=== PATIENT | male | born 1960 | race Caucasian/White ===

== ENCOUNTER 2019-05-16 13:11 | Inpatient (IN) | payer BC ==
[~2019-05-16] VITALS: Ht 188 cm; Wt 98.2 kg
[2019-05-16 13:52] LABS: BASOPHILS ABSOLUTE AUTO 0.02 K/mm3 (0.00-0.23); BASOPHILS PERCENT AUTO 0 % (0-2); EOSINOPHILS ABSOLUTE AUTO 0.01 K/mm3 (0.00-0.68); EOSINOPHILS PERCENT AUTO 0 % (0-6); IMMATURE GRAN PERCENT AUTO 1 % (0-1); LYMPHOCYTES ABSOLUTE AUTO 1.98 K/mm3 (0.84-5.20); LYMPHOCYTES PERCENT AUTO 12 % (21-46); MONOCYTES ABSOLUTE AUTO 1.12 K/mm3 (0.16-1.47); MONOCYTES PERCENT AUTO 7 % (4-13); Mean Corpuscular HGB 33.1 pg (26.0-34.0); Mean Corpuscular HGB Conc 33.5 g/dL (31.5-36.5); Mean Corpuscular Volume 99 fL (80-100); Mean Platelet Volume 9.7 fL (9.1-12.4); NEUTROPHILS ABSOLUTE AUTO 12.79 K/mm3 (1.96-9.15); NEUTROPHILS PERCENT AUTO 80 % (41-73); Platelet Count 235 K/mm3 (150-400); RDW Coefficient Variation 14.6 % (11.7-14.2); RDW Standard Deviation 51.5 fL (35.1-46.3); Red Blood Cell Count 1.75 M/mm3 (4.30-5.90); White Blood Cell Count 16.02 K/mm3 (4.00-11.30)
[2019-05-16 13:55] LABS: Hemoglobin 5.8 g/dL (13.5-17.5)
[2019-05-16 13:56] LABS: Hematocrit 17.3 % (37.0-53.0)
[2019-05-16 14:13] LABS: Alanine Aminotransfer (ALT/SGP 45 U/L (12-78); Albumin, Blood 2.6 g/dL (3.4-5.0); Albumin/Globulin Ratio 1.1 (0.8-1.8); Alk Phos 138 U/L (50-136); Anion Gap 8 mmol/L (6-16); Aspartate Aminotrans (AST/SGOT 83 U/L (12-37); Bilirubin, Total 0.7 mg/dL (0.1-1.0); Blood Urea Nitrogen 42 mg/dL (8-24); Bun/Creatinine Ratio 42.8 (12.0-20.0); CO2, Blood 23 mmol/L (21-32); Chloride, Blood 106 mmol/L (98-108); Creatinine, Blood 0.98 mg/dL (0.60-1.20); Globulin, Blood 2.3 g/dL (2.2-4.0); Glomerular Filtration Rate >60 (60-); Glucose, Blood 125 mg/dL (70-99); Potassium, Blood 4.5 mmol/L (3.5-5.5); Sodium, Blood 137 mmol/L (136-145); Total Protein, Blood 4.9 g/dL (6.4-8.2)
[2019-05-16] MEDS ORDERED: LIDOCAINE1 EACH TOP (15:54)
[2019-05-16] MEDS ORDERED: Naproxen250 MG PO (15:54)
[2019-05-16] MEDS ORDERED: Carisoprodol350 MG PO (15:55)
[2019-05-16] MEDS ORDERED: OMEP20ER PO (16:13)
[2019-05-16] MEDS ORDERED: AMLO10 PO (16:13)
[2019-05-16] MEDS ORDERED: Flonase 0.05% N16 GM (16:14)
[2019-05-16] MEDS ORDERED: Hydrocodone-Ap1 EA20 PO (16:14)
--- NOTE | 2019-05-16 16:30 | NUR ---
Recieved report from Christiano ABBOTT and patient was transfered via rney to ICU 6. He was a 4 person slide transfer as he felt too weak. He had Protonix at 10ml/hr, Octreotide at 25ml/hr, Blood at 400ml/hr. He is very tired.. He has three IVs all dressings intact and site WNL's. He is hooked up to monitor, systolic 80's and called Dr Randolph for bolus and recieved LR bolus 100ml and than 150ml/hr.
--- NOTE | 2019-05-16 17:23 | NUR ---
2nd Unit PRBC going and boluses and systolic still low. Called and got order for low Levophed for systolics in the 70-80's and is currently 5mcg/min and systolics 100's. Scope team and Dr Rangel in room getting consents and will be starting shortly. Dr King Anesthesia. Stopped Octreotide for extra line and blood is done.
--- NOTE | 2019-05-16 18:00 | NUR ---
05/16/19 Janette Kilgore History, Chart, Medications and Allergies reviewed before start of procedure.[facility] [place] [facility] IWDALE OSBORNE
[2019-05-16 18:27] LABS: Hematocrit 20.9 % (37.0-53.0)
--- NOTE | 2019-05-16 19:00 | NUR ---
Gave report to Tonia ABBOTT and reviewed IV pumps and orders. Dr Jones wrote new orders and labs and reviewed with both of us. Patient alert and wanting to rest and is able to communicate his needs.
--- NOTE | 2019-05-16 21:58 | NUR ---
PATIENT RESTING IN BED AT FIRST PATIENT VERY RESTLESS AND UNABLE TO LAY STILL. C/O FEELING IF HE HAD "HEART BURN" AND LIKE SOMEONE HAD HIT HIM IN THE BELLY. PATIENT ALSO C/O HIS CHRONIC LOW BACK PAIN. PATIENT PASSING FREQUENT FLATUS AND INCONT OF SMALL LOOSE BLACK BM. ATTENDS IN PLACE. PATIENT VOIDING DARK DANIEL URINE. PATIENTS BED ADJUSTED FOR COMFORT. PATIENT CONTINUES ON PROTONIX AND OCTREOTIDE DRIP. SCHEDULED REGLAN GIVEN. ATIVAN GIVEN TO HELP PATIENT RELAX. PATIENT NOW RESTING QUIETLY AND SLEEPING WHEN UNDISTURBED. LEVOPHED DRIP HAS BEEN TITRATED DOWN NOW AT 1 MCG. PRBC INFUSING WITHOUT ISSUE.
--- NOTE | 2019-05-16 22:54 | NUR ---
PATIENT RESTING QUIETLY, AWAKENS TO SLIGHT STIMULI. NO COMPLAINTS AT THIS TIME. 4TH UNIT PRBC STARTED.
[2019-05-17 01:52] LABS: Hematocrit 27.5 % (37.0-53.0); Hemoglobin 9.3 g/dL (13.5-17.5)
--- NOTE | 2019-05-17 04:45 | NUR ---
PATIENT AWAKE AND RESTLESS. ATTEMPT TO ADJUST AIR BED FOR COMFORT. HEATING PAD PLACED TO BACK. ATIVAN GIVEN TO HELP PATIENT RELAX.
--- NOTE | 2019-05-17 06:13 | NUR ---
SUMMARY PATIENT RESTING QUIETLY T/O THE NIGHT. NO SIGN OF BLEEDING AT THIS TIME. LEVOPHED TITRATE OFF AND VSS. PATIENT C/O CHRONIC BACK PAIN AND RESTLESS AT TIMES. HEATING PAD PLACED TO PATIENTS BACK AND ATIVAN IV GIVEN FOR RESTLESSNESS WITH GOOD RESULTS. PATIENTS GIRL FRIEND CHRISS AT BEDSIDE T/O THE NIGHT PROVIDING GOOD SUPPORT.
--- NOTE | 2019-05-17 07:47 | NUR ---
CARE ASSUMED, ASSESSMENT COMPLETED. PT DROWSY AFTER ATIVAN, ROUSES EASILY, COOPERATIVE WITH CARE. NO AGITATION OR RESTLESSNESS NOTED. PT POSITIONS SELF IN BED, ATTENDS ON, NO BM OR EMESIS THIS MORNING. KPAD TO LOWER BACK FOR COMFORT, SCDS IN PLACE. VSS, HR NSR. S/O AT BEDSIDE. LABS DRAWN, US TECH AT BEDSIDE FOR EXAM.
[2019-05-17 07:54] LABS: Hematocrit 26.4 % (37.0-53.0); Hemoglobin 8.9 g/dL (13.5-17.5)
--- NOTE | 2019-05-17 07:54 | NUR ---
OCTREOTIDE AND PROTONIX INFUSING PER ORDERS.
[2019-05-17 07:55] LABS: Hematocrit 26.2 % (37.0-53.0); Hemoglobin 8.9 g/dL (13.5-17.5); Mean Corpuscular HGB 30.2 pg (26.0-34.0); Mean Platelet Volume 9.4 fL (9.1-12.4); NRBC ABSOLUTE 0.03 K/mm3 (0.00-0.02); NRBC Auto 0.3 /100 WBC (0.0-0.2); Platelet Count 137 K/mm3 (150-400); RDW Coefficient Variation 18.1 % (11.7-14.2); RDW Standard Deviation 56.9 fL (35.1-46.3); Red Blood Cell Count 2.95 M/mm3 (4.30-5.90); White Blood Cell Count 9.17 K/mm3 (4.00-11.30)
[2019-05-17 07:58] LABS: Mean Corpuscular Volume 89 fL (80-100)
[2019-05-17 08:10] LABS: International Normalized Ratio 1.17; Prothrombin Time Results 12.2 Sec (9.7-11.5)
[2019-05-17 08:15] LABS: Anion Gap 5 mmol/L (6-16); Blood Urea Nitrogen 22 mg/dL (8-24); Bun/Creatinine Ratio 29.4 (12.0-20.0); CO2, Blood 26 mmol/L (21-32); Calcium, Blood 7.6 mg/dL (8.5-10.1); Chloride, Blood 110 mmol/L (98-108); Creatinine, Blood 0.75 mg/dL (0.60-1.20); Glomerular Filtration Rate >60 (60-); Glucose, Blood 116 mg/dL (70-99); Potassium, Blood 3.8 mmol/L (3.5-5.5); Sodium, Blood 141 mmol/L (136-145)
--- NOTE | 2019-05-17 08:54 | NUR ---
TRAMADOL ADMINISTERED FOR BACK PAIN, ATTENDS CHANGED FOR LARGE LOOSE BLACK STOOL. PT VOIDING IN URINAL WITHOUT DIFFICULTY, URINE DANIEL AND CLEAR. PT REPOSITIONING SELF. DR. SILVERMAN IN TO ASSESS PT.
--- NOTE | 2019-05-17 12:43 | NUR ---
DR. CARYE HAS BEEN IN TO ASSESS PT. PT CONTINUES TO SLEEP, REMAINS DROWSY BUT ROUSES EASILY TO VOICE, CALM AND COOPERATIVE, ORIENTED X4. TEMP 100.4, BLANKETS REMOVED, WILL REASSESS. OTHER VSS, OCTREOTIDE AND PROTONIX CONTINUE TO INFUSE PER ORDERS.
--- NOTE | 2019-05-17 13:19 | NUR ---
PT SAT UP IN BED, ATE LIQUID LUNCH WITHOUT DIFFICULTY, DENIES ABD PAIN OR NAUSEA AFTER EATING. PT TO ICU RM 9, NOW SITTING UP IN BED WATCHING TV AND VISITING WITH S/O, DENIES NEEDS OR C/O, REFUSES ORAL CARE AND BATHING AT THIS TIME, STATES HE WILL SHOWER LATER TODAY. VSS.
--- NOTE | 2019-05-17 15:15 | NUR ---
ASSUMED CARE: RECEIVED REPORT FROM JAKUB DIAMOND RN AT THIS TIME. NO ACUTE DISTRESS NOTED. DR CABRERA HAS NOT BEEN IN TO SEE PT OF YET. PT LYING IN THE BED WITH SIGNIFICANT OTHER AT BEDSIDE. SIGNIFICANT OTHER REQUESTS FOR ATIVAN FOR THE PT IN ORDER FOR HIM TO "SLEEP". EDUCATED ON THE REASON FOR ATIVAN ORDER AND NEEDING TO WAIT UNTIL NEEDED. PT IS NOTED TO HAVE SOME IRRATATION WHEN UP, BUT IS COOPERATIVE. CALL LIGHT IN REACH.
--- NOTE | 2019-05-17 15:25 | NUR ---
PT ASSISTED UP TO COMMODE FOR ANOTHER BM, STOOL REMAINS BLACK. PT DENIES DIZZINESS T/O TRANSFER, VSS. PT BACK IN BED, REFUSES SHOWER AND ORAL CARE, IS NOW RESTING WITH EYES CLOSED. NO N/V THIS SHIFT, BP'S STABLE, OCTREOTIDE AND PROTONIX CONTINUE TO INFUSE PER ORDERS. REPORT TO RECEIVING NURSE.
--- NOTE | 2019-05-17 20:00 | NUR ---
ASSUMED CARE OF PT AT 1915. REPORT RECEIVED. PT PRESENTS IN BED. IRRITABLE AND COMPLAINS OF PAIN MANAGEMENT AND [facility] APPROACH. PT STATES THAT HE HAS CHRONIC PAIN ISSUES, AND THAT [facility] OFF[facility]CTURE. PT STATES THAT HE IS GOING TO SEE AN OUTSIDE PAIN CLINIC FOR TREATMENT. PT WANTS TO SIT UP IN A CHAIR, AND ASSISTED PT WITH GETTING OUT OF BED IN REGAURDS TO IV LINES. PT DOES NOT FOLLOW CUES VERY WELL. NEEDS TO HAVE DIRECTIONS REIFORCED. PT NOW UP IN BEDSIDE CHAIR. WILL REVIEW CHART AND PLAN OF CARE FOR THIS PT.
--- NOTE | 2019-05-18 01:31 | NUR ---
PT SLEEPING IN BED AT THIS TIME. CONTINUES ON SANDOSTATIN, AND PROTONIX DRIP. PT HAS HAD SMALL INCONTINENT STOOL IN ATTENDS, AND WAS ASSISTED TO TOILET FOR ANOTHER BM. PT VOIDS Q.S. PT'S GIRLFRIEND STAYS IN ROOM FOR THE NIGHT. IS VERY ATTENTIVE TO PT'S NEEDS. NO ACTIVE BLEEDING NOTED AT THIS TIME. WILL CONTINUE TO MONITOR.
--- NOTE | 2019-05-18 03:35 | NUR ---
REPORT CALLED TO MEDICAL FLOOR. PT TRANSFERRED TO ROOM 339. PT IN STABLE CONDITION. PT'S GIRLFRIEND FOLLOWS PT TO MEDICAL FLOOR.
[2019-05-18 03:52] LABS: BASOPHILS ABSOLUTE AUTO 0.04 K/mm3 (0.00-0.23); BASOPHILS PERCENT AUTO 1 % (0-2); EOSINOPHILS ABSOLUTE AUTO 0.14 K/mm3 (0.00-0.68); EOSINOPHILS PERCENT AUTO 2 % (0-6); Hematocrit 25.2 % (37.0-53.0); Hemoglobin 8.5 g/dL (13.5-17.5); IMMATURE GRAN ABSOLUTE AUTO 0.01 K/mm3 (0.00-0.10); IMMATURE GRAN PERCENT AUTO 0 % (0-1); LYMPHOCYTES ABSOLUTE AUTO 1.42 K/mm3 (0.84-5.20); LYMPHOCYTES PERCENT AUTO 22 % (21-46); MONOCYTES ABSOLUTE AUTO 0.89 K/mm3 (0.16-1.47); MONOCYTES PERCENT AUTO 14 % (4-13); Mean Corpuscular HGB 30.8 pg (26.0-34.0); Mean Corpuscular HGB Conc 33.7 g/dL (31.5-36.5); Mean Corpuscular Volume 91 fL (80-100); Mean Platelet Volume 9.3 fL (9.1-12.4); NEUTROPHILS ABSOLUTE AUTO 3.86 K/mm3 (1.96-9.15); NEUTROPHILS PERCENT AUTO 61 % (41-73); Platelet Count 124 K/mm3 (150-400); RDW Standard Deviation 59.3 fL (35.1-46.3); Red Blood Cell Count 2.76 M/mm3 (4.30-5.90); White Blood Cell Count 6.36 K/mm3 (4.00-11.30)
[2019-05-18 04:07] LABS: Anion Gap 4 mmol/L (6-16); Blood Urea Nitrogen 15 mg/dL (8-24); CO2, Blood 27 mmol/L (21-32); Calcium, Blood 7.4 mg/dL (8.5-10.1); Chloride, Blood 110 mmol/L (98-108); Creatinine, Blood 0.71 mg/dL (0.60-1.20); Glomerular Filtration Rate >60 (60-); Glucose, Blood 103 mg/dL (70-99); Potassium, Blood 3.7 mmol/L (3.5-5.5); Sodium, Blood 141 mmol/L (136-145)
--- NOTE | 2019-05-18 04:11 | NUR ---
PATIENT TRANFER FROM ICU:10. REPORT TAKEN FROM LYN ABBOTT. PATIENT ONE ASSIST TRANSFER FROM [facility] TO BED. AXO X3. DENIES PAIN, SOB, AND N/V. PATIENT TRANSFER WITH THREE PIVS AND THREE IV PUMPS INFUSING LR, PROTONIX, AND SANDOSTATON PER EMAR. PATIENT ORIENTED TO ROOM. CALL LIGHT IN REACH. BED IN LOWEST POSITION. WILL CONTINUE TO MONITOR UNTIL DAY SHIFT NURSE ASSUMES CARE.
--- NOTE | 2019-05-18 04:31 | NUR ---
TELEMETRY PLACED AND TECH REPORTS NSR 83.
[2019-05-18 05:09] LABS: HBSAG SCREEN Negative (Negative); HEP B CORE AB, TOT Negative (Negative); HEP C VIRUS AB <0.1 (0.0-0.9)
--- NOTE | 2019-05-18 18:49 | NUR ---
NO ACUTE CHANGES THIS SHIFT. PATIENT HAS SLEPT MOST OF SHIFT. HE IS INDEPENDENT IN THE ROOM AND ABLE TO EXPRESS ANY NEEDS. FUGITIVE INVESTIGATOR IN ROOM ALL DAY.
[2019-05-19 05:24] LABS: Hematocrit 28.4 % (37.0-53.0); Hemoglobin 9.2 g/dL (13.5-17.5)
--- NOTE | 2019-05-19 05:25 | NUR ---
ANATOMY TEACHER SUMMARY NO ACUTE CHANGES THIS SHIFT. PT AAOX4 AND PLEASANT. DENIES PAIN, N/V. CONTINUES ON PROTONIX DRIP. NO BM'S THIS SHIFT. VSS, WILL CONTINUE TO MONITOR.
[2019-05-19] MEDS ORDERED: TRAM50 PO (10:58)
[2019-05-19] MEDS ORDERED: NADO20 PO (11:00)
--- NOTE | 2019-05-19 11:29 | NUR ---
1120 PATIENT HAD IVS REMOVED PRIOR TO DISCHARGE. NO SS OF INFECTION NOTED. NURSE WENT OVER DISCHARGE INSTRUCTIONS WITH PATIENT . PATIENT HAS NO PCP BUT WAS ENCOURAGED TO OBTAIN ONE. PATIENT TOLD TO FOLLOW UP WITH DOCTOR TRISTIN OFFICE. NURSE EDUCATED PATIENT REGARDING DC'D MEDS AND NEW MEDS. [facility]
[2019-06-28] MEDS ORDERED: FURO40 PO (12:39)
[2019-06-28] MEDS ORDERED: Aldactone100 MG PO (12:39)
[2019-06-28] MEDS ORDERED: GABA300 PO (12:39)
== END 2019-05-19 11:26 | disposition home or self-care (01) | DRG 432 ==
LOC: ER 13:11 → ICUE 13:12 → ICUW 13:12 → ICUE 15:30 → ICUW 05-17 13:14 → MEDS 05-18 03:33 → ENPENDDIS 05-19 10:17 → MEDS 05-19 11:26
PROVIDERS: Emergency Medicine; Internal Medicine; Internal Medicine Critical Care Medicine; Internal Medicine Gastroenterology; ADMIT Internal Medicine
PROC: 3E033XZ Introduction of Vasopressor into Peripheral Vein, Percutaneous Approach (ICD-10-PCS; 2019-05-16)
PROC: 06L38CZ Occlusion of Esophageal Vein with Extraluminal Device, Via Natural or Artificial Opening Endoscopic (ICD-10-PCS; 2019-05-16)
PROC: 30233N1 Transfusion of Nonautologous Red Blood Cells into Peripheral Vein, Percutaneous Approach (ICD-10-PCS; principal; 2019-05-16 18:45)
DX: K70.31 Alcoholic cirrhosis of liver with ascites (principal); R57.8 Other shock; I85.11 Secondary esophageal varices with bleeding; D62 Acute posthemorrhagic anemia; R65.10 Systemic inflammatory response syndrome (SIRS) of non-infectious origin without acute organ dysfunction; M19.90 Unspecified osteoarthritis, unspecified site; I10 Essential (primary) hypertension; F17.210 Nicotine dependence, cigarettes, uncomplicated; I95.9 Hypotension, unspecified; F10.20 Alcohol dependence, uncomplicated; Z90.49 Acquired absence of other specified parts of digestive tract; K70.10 Alcoholic hepatitis without ascites; Z85.038 Personal history of other malignant neoplasm of large intestine; K44.9 Diaphragmatic hernia without obstruction or gangrene; G89.29 Other chronic pain; M54.9 Dorsalgia, unspecified
CPT/HCPCS: 36415; 36430; 76705; 80048; 80053; 85014; 85018; 85025; 85027; 85610; 85730; 86317; 86704; 86708; 86803; 86850; 86900; 86901; 86923; 87040; 87340; 93005; 93010; 93976; 96365; 96366; 96368; 96375; 99285-25; C9113; J0696; J2060; J2354; J2405; J2704; J2765; J3411; J3475; J7030; J7040; J7042; J7050; J7120; P9016

== ENCOUNTER 2019-07-05 10:28 | Day surgery (SDC) | payer BC ==
[~2019-07-05] VITALS: Ht 188 cm; Wt 83.6 kg
[~2019-07-05 10:28] MED LIST: AMLO10 PO; Aldactone100 MG PO; Carisoprodol350 MG PO; FURO40 PO; Flonase 0.05% N16 GM; GABA300 PO; Hydrocodone-Ap1 EA20 PO; LIDOCAINE1 EACH TOP; NADO20 PO; Naproxen250 MG PO; OMEP20ER PO; TRAM50 PO
--- NOTE | 2019-07-05 12:21 | NUR ---
07/05/19 1221 Kim Leonardo BANDING OF 4 VARICES
--- NOTE | 2019-07-05 13:00 | NUR ---
07/05/19 1300 Kim Leonardo LATE ENTRY FOR TODAY AT 1230 PATIENT C/O PAIN IN HIS CHEST POST BANDING OF VARICES. ORDERS RECEIVED FROM DR. SESAY FOR FENATNYL UP TO 50MCG IV. PATIENT GIVEN FENTANYL ORDERED. NO CHANGE IN PAIN STATUS. RN DISCUSSED WITH PATIENT PRIOR TO PROCEDURE THAT IF DR. CABRERA BANDED VARICES THAT THE PATIENT CAN EXPECT TO FEEL CHEST PAIN, NAUSEA, OR FEELING LIKE SOMETHING WAS STUCK IN HIS THROAT. PATIENT HAD VERBALIZED UNDERSTANDING AT THAT TIME. PATIENT CONTINUES TO VERBALIZE UNDERSTANDING THAT THIS IS A RESULT OF BANDING THE VARICES. PATIENT WANTS TO BE DISCHARGED HOME. PATIENT DISCHARGED WITH INSTRUCTIONS FOR LIQUID DIET TODAY. PATIENT AND FAMILY VERBALIZE UNDERSTANDING. RN ENCOURAGED PATIENT AND FAMILY TO CONTACT DR. CABRERA'S OFFICE IS THEY HAD ANY CONCERNS. PATIENT AND FAMILY VERBALIZED UNDERSTANDING. PATIENT TO BE DISCHARGED HOME WITH PRESCRIPTIONS FOR TYLENOL #3 AND SUCRALFATE.
== END 2019-07-05 12:53 | disposition home or self-care (01) ==
LOC: ORSCSDS 10:28
PROVIDERS: Internal Medicine Gastroenterology
PROC: 06L38CZ Occlusion of Esophageal Vein with Extraluminal Device, Via Natural or Artificial Opening Endoscopic (ICD-10-PCS; principal; 2019-07-05 11:45)
DX: I85.01 Esophageal varices with bleeding (principal); K74.60 Unspecified cirrhosis of liver; K76.6 Portal hypertension; K31.89 Other diseases of stomach and duodenum; K44.9 Diaphragmatic hernia without obstruction or gangrene; I10 Essential (primary) hypertension; F17.210 Nicotine dependence, cigarettes, uncomplicated; Z79.899 Other long term (current) drug therapy
CPT/HCPCS: J2704; J3010; J7120

== ENCOUNTER 2019-08-09 12:12 | Day surgery (SDC) | payer BC ==
[~2019-08-09] VITALS: Ht 188 cm; Wt 84.9 kg
--- NOTE | 2019-08-09 14:29 | NUR ---
08/09/19 1429 Irene Munoz PT REFUSED ANYTHING TO DRINK. PT BEGAN WRETCHING AND WAS GIVEN ZOFRAN 4MG IVP PER ANESTHESIA ORDERS. NAUSEA RESOLVED. PT CONTINUED TO REFUSE PO FLUIDS
== END 2019-08-09 14:25 | disposition home or self-care (01) ==
LOC: ORSCSDS 12:12
PROVIDERS: Internal Medicine Gastroenterology
PROC: 06L38CZ Occlusion of Esophageal Vein with Extraluminal Device, Via Natural or Artificial Opening Endoscopic (ICD-10-PCS; principal; 2019-08-09 13:30)
DX: I85.00 Esophageal varices without bleeding (principal); K76.6 Portal hypertension; K31.89 Other diseases of stomach and duodenum; K74.60 Unspecified cirrhosis of liver; K21.9 Gastro-esophageal reflux disease without esophagitis; Z79.899 Other long term (current) drug therapy
CPT/HCPCS: J2001; J2405; J2704; J7120

== ENCOUNTER 2019-08-15 16:00 | Emergency (ER) | payer OTHER, BC ==
[~2019-08-15] VITALS: Ht 188 cm; Wt 86.2 kg
[2019-08-15 16:38] LABS: BASOPHILS ABSOLUTE AUTO 0.09 K/mm3 (0.00-0.23); BASOPHILS PERCENT AUTO 1 % (0-2); EOSINOPHILS ABSOLUTE AUTO 0.23 K/mm3 (0.00-0.68); EOSINOPHILS PERCENT AUTO 3 % (0-6); Hematocrit 38.8 % (37.0-53.0); Hemoglobin 12.8 g/dL (13.5-17.5); IMMATURE GRAN ABSOLUTE AUTO 0.17 K/mm3 (0.00-0.10); IMMATURE GRAN PERCENT AUTO 2 % (0-1); LYMPHOCYTES ABSOLUTE AUTO 1.82 K/mm3 (0.84-5.20); LYMPHOCYTES PERCENT AUTO 20 % (21-46); MONOCYTES ABSOLUTE AUTO 0.73 K/mm3 (0.16-1.47); MONOCYTES PERCENT AUTO 8 % (4-13); Mean Corpuscular HGB 26.6 pg (26.0-34.0); Mean Corpuscular Volume 81 fL (80-100); Mean Platelet Volume 8.8 fL (9.1-12.4); NEUTROPHILS ABSOLUTE AUTO 5.87 K/mm3 (1.96-9.15); NEUTROPHILS PERCENT AUTO 66 % (41-73); NRBC ABSOLUTE 0.02 K/mm3 (0.00-0.02); NRBC Auto 0.2 /100 WBC (0.0-0.2); Platelet Count 208 K/mm3 (150-400); RDW Coefficient Variation 17.9 % (11.7-14.2); RDW Standard Deviation 52.2 fL (35.1-46.3); Red Blood Cell Count 4.82 M/mm3 (4.30-5.90); White Blood Cell Count 8.91 K/mm3 (4.00-11.30)
[2019-08-15 17:09] LABS: Alanine Aminotransfer (ALT/SGP 58 U/L (12-78); Albumin, Blood 3.8 g/dL (3.4-5.0); Alk Phos 158 U/L (50-136); Anion Gap 7 mmol/L (6-16); Aspartate Aminotrans (AST/SGOT 59 U/L (12-37); Bilirubin, Total 0.9 mg/dL (0.1-1.0); Blood Urea Nitrogen 12 mg/dL (8-24); Bun/Creatinine Ratio 15.3 (12.0-20.0); CO2, Blood 26 mmol/L (21-32); Calcium, Blood 9.4 mg/dL (8.5-10.1); Chloride, Blood 104 mmol/L (98-108); Creatinine, Blood 0.78 mg/dL (0.60-1.20); Globulin, Blood 3.7 g/dL (2.2-4.0); Glomerular Filtration Rate >60 (60-); Glucose, Blood 108 mg/dL (70-99); Potassium, Blood 3.7 mmol/L (3.5-5.5); Sodium, Blood 137 mmol/L (136-145); Total Protein, Blood 7.5 g/dL (6.4-8.2)
== END 2019-08-15 18:48 | disposition short-term general hospital (02) ==
LOC: ER 16:00
PROVIDERS: Emergency Medicine
DX: S68.621A Partial traumatic transphalangeal amputation of left index finger, initial encounter (principal); S22.079A Unspecified fracture of T9-T10 vertebra, initial encounter for closed fracture; S22.059A Unspecified fracture of T5-T6 vertebra, initial encounter for closed fracture; S22.069A Unspecified fracture of T7-T8 vertebra, initial encounter for closed fracture; S62.627A Displaced fracture of middle phalanx of left little finger, initial encounter for closed fracture; V89.2XXA Person injured in unspecified motor-vehicle accident, traffic, initial encounter; I10 Essential (primary) hypertension; G43.909 Migraine, unspecified, not intractable, without status migrainosus; F17.210 Nicotine dependence, cigarettes, uncomplicated
CPT/HCPCS: 71260; 73130; 80053; 85025; 90471; 90714; 96365-59; 96375-59; 96376-59; 99285-25; J0690; J1170; Q9967

== ENCOUNTER 2020-02-10 18:31 | Emergency (ER) | payer BC ==
[~2020-02-10] VITALS: Ht 188 cm; Wt 90.7 kg
== END 2020-02-10 21:07 | disposition left against medical advice (07) ==
LOC: ER 18:31
DX: Z53.21 Procedure and treatment not carried out due to patient leaving prior to being seen by health care provider (principal)

== ENCOUNTER 2020-02-26 08:58 | Day surgery (SDC) | payer BC, OTHER ==
[~2020-02-26] VITALS: Ht 188 cm; Wt 91.6 kg
[~2020-02-26 08:58] MED LIST changes: +ALDACTONE100 MG PO; +BACL10 PO; +OXYC5 PO; +SUCR1 PO
--- NOTE | 2020-02-26 11:17 | NUR ---
02/26/20 1117 Irene Munoz MEDHAT BLOOD FOR AFP - SENT TO LAB. USED BUTTERFLY X2
== END 2020-02-26 11:17 | disposition home or self-care (01) ==
LOC: ORSCSDS 08:58
PROVIDERS: Internal Medicine Gastroenterology
PROC: 0DBN8ZX Excision of Sigmoid Colon, Via Natural or Artificial Opening Endoscopic, Diagnostic (ICD-10-PCS; principal; 2020-02-26 10:00)
PROC: 0DBL8ZX Excision of Transverse Colon, Via Natural or Artificial Opening Endoscopic, Diagnostic (ICD-10-PCS; principal; 2020-02-26 10:00)
DX: Z12.11 Encounter for screening for malignant neoplasm of colon (principal); Z85.038 Personal history of other malignant neoplasm of large intestine; D12.3 Benign neoplasm of transverse colon; K63.5 Polyp of colon; K57.30 Diverticulosis of large intestine without perforation or abscess without bleeding; K64.8 Other hemorrhoids; K70.30 Alcoholic cirrhosis of liver without ascites; F17.210 Nicotine dependence, cigarettes, uncomplicated; Z79.899 Other long term (current) drug therapy
CPT/HCPCS: 82105; 88305; J2704; J7120

== ENCOUNTER 2025-05-24 11:52 | Day surgery (SDC) | payer OTHER ==
[~2025-05-24] VITALS: Ht 188 cm; Wt 94.0 kg
[2025-05-24] MEDS ORDERED: Benzocaine Oral Spray 0.5ML UD ONE (11:56)
[2025-05-24] MEDS ORDERED: ePHEDrine Sulfate 50 MG/ML 1ML Injection ONE (13:26)
[2025-05-24] MEDS ORDERED: Glycopyrrolate 0.2 MG/ML 1MLVIAL ONE ×2 (13:28→13:32)
[2025-05-24 13:52] VITALS: BP 100/64
== END 2025-05-24 14:14 | disposition home or self-care (01) ==
LOC: ORSCSDS 11:52
PROVIDERS: Specialist
PROC: 0DJ08ZZ Inspection of Upper Intestinal Tract, Via Natural or Artificial Opening Endoscopic (ICD-10-PCS; principal; 2025-05-24 13:15)
DX: K74.60 Unspecified cirrhosis of liver (principal); K76.6 Portal hypertension; K31.89 Other diseases of stomach and duodenum; K44.9 Diaphragmatic hernia without obstruction or gangrene; Z13.810 Encounter for screening for upper gastrointestinal disorder; Z79.899 Other long term (current) drug therapy; I10 Essential (primary) hypertension; E78.5 Hyperlipidemia, unspecified; F17.210 Nicotine dependence, cigarettes, uncomplicated
CPT/HCPCS: A9270; J2704; J7120